=== PATIENT | female | born 1990 | race Caucasian/White ===

== ENCOUNTER 2017-01-01 02:35 | Emergency (ER) | payer OTHER ==
[2017-01-01 02:51] VITALS: BP 132/80; PULSE 90; TEMP 98.4; BMI 30.4
--- NOTE | 2017-01-01 03:27 | PDOC ---
History of Present Illness - General History Source: Patient Exam Limitations: No Limitations - History of Present Illness Initial Comments: 01/01/17 04:35 The patient is a 26 year old female, , with a significant past medical history of ovarian cysts, and pulmonary valve stenosis, presenting to the Emergency Department with abdominal pain. She reports that she was woken up from sleep about one hour ago with sharp, lower abdominal pain. She describes the pain as exacerbated with movement, or when standing. She reports that she is unsure of when her last bowel movement was. She admits that she feels that she needs to pass gas, but that it is painful. She reports that she has a history of ovarian cysts, and has a copper IUD. The patient denies nausea, vomiting, and diarrhea. Patient denies dysuria, hematuria, and urinary frequency. Patient denies fever, chills, and cough. Patient denies vaginal discharge, or vaginal bleeding. Past Medical Hx: asthma <Zaida Capellan - Last Filed: 01/01/17 06:53> <Lelia Blanc - Last Filed: 01/01/17 06:58> - General Chief Complaint: Pain, Acute Stated Complaint: ABDOMINAL PAIN RIGHT SIDE Time Seen by Provider: 01/01/17 03:03 Past History <Zaida Capellan - Last Filed: 01/01/17 06:53> - Past Medical History Anemia: No Asthma: Yes Cancer: No Cardiac Disorders: Yes (pulmonary stenosis) CVA: No COPD: No CHF: No Dementia: No Diabetes: No GI Disorders: No Disorders: Yes (HAD PAINFUL KIDNEY INFECTION SEVERAL YRS AGO) HTN: No Hypercholesterolemia: No Liver Disease: No Suicide Attempt (Hx): No Seizures: No Thyroid Disease: No - Reproductive History (#): 3 Para: 2 - Psycho/Social/Smoking Cessation Hx Anxiety: No Suicidal Ideation: No Smoking Status: No Smoking History: Never smoked Number of Cigarettes Smoked Daily: 0 Hx Alcohol Use: No Drug/Substance Use Hx: No Substance Use Type: None Hx Substance Use Treatment: No <Lelia Blanc - Last Filed: 01/01/17 06:58> - Past Medical History Allergies/Adverse Reactions: Allergies Allergy/AdvReac Type Severity Reaction Status Date / Time meperidine HCl [From Demerol] Allergy Intermediate Hives Verified 01/01/17 02:49 Home Medications: Ambulatory Orders Albuterol Sulfate Inhaler - [Ventolin HFA Inhaler -] 1 - 2 inh PO QID PRN Nitrofurantoin Macrocrystal [Nitrofurantoin] 100 mg PO BID #14 capsule 01/01/17 Review of Systems - Review of Systems Able to Perform ROS?: Yes Comments:: 01/01/17 04:35 GENERAL/CONSTITUTIONAL: No fever or chills. No weakness. HEAD, EYES, EARS, NOSE AND THROAT: No change in vision. No ear pain or discharge. No sore throat. CARDIOVASCULAR: No chest pain or shortness of breath. RESPIRATORY: No cough, wheezing, or hemoptysis. GASTROINTESTINAL: + RLQ pain. No nausea, vomiting, diarrhea or constipation. GENITOURINARY: No dysuria, frequency, or change in urination. MUSCULOSKELETAL: No joint or muscle swelling or pain. No neck or back pain. SKIN: No rash NEUROLOGIC: No headache, vertigo, loss of consciousness, or change in strength/ sensation. ENDOCRINE: No increased thirst. No abnormal weight change. HEMATOLOGIC/LYMPHATIC: No anemia, easy bleeding, or history of blood clots. ALLERGIC/IMMUNOLOGIC: No hives or skin allergy. <Zaida Capellan - Last Filed: 01/01/17 06:53> *Physical Exam - Vital Signs Last Vital Signs Temp Pulse Resp BP Pulse Ox 98.4 F 90 20 132/80 99 01/01/17 02:49 01/01/17 02:49 01/01/17 02:49 01/01/17 02:49 01/01/17 02:49 - Physical Exam Comments: 01/01/17 04:36 GENERAL: Awake, alert, and fully oriented, in no acute distress HEAD: No signs of trauma EYES: PERRLA, EOMI, sclera anicteric, conjunctiva clear ENT: Auricles normal inspection, hearing grossly normal, nares patent, oropharynx clear without exudates. Moist mucosa NECK: Normal ROM, supple, no lymphadenopathy, JVD, or masses LUNGS: Breath sounds equal, clear to auscultation bilaterally. No wheezes, and no crackles HEART: Regular rate and rhythm, normal S1 and S2, no murmurs, rubs or gallops ABDOMEN: Diffusely tender, extremely gassy bowel sounds. Soft. No guarding, no rebound. No masses EXTREMITIES: Normal range of motion, no edema. No clubbing or cyanosis. No cords, erythema, or tenderness NEUROLOGICAL: Cranial nerves II through XII grossly intact. Normal speech, normal gait SKIN: Warm, Dry, normal turgor, no rashes or lesions noted. <Zaida Capellan - Last Filed: 01/01/17 06:53> - Vital Signs Last Vital Signs Temp Pulse Resp BP Pulse Ox 98.4 F 90 20 132/80 99 01/01/17 02:49 01/01/17 02:49 01/01/17 02:49 01/01/17 02:49 01/01/17 02:49 <Lelia Blanc - Last Filed: 01/01/17 06:58> ED Treatment Course - LABORATORY CBC & Chemistry Diagram: 01/01/17 03:15 - ADDITIONAL ORDERS Additional order review: Laboratory Results 01/01/17 01/01/17 04:12 03:15 Urine Color Straw Urine Appearance Clear Urine pH 6.0 Ur Specific [place] 1.010 Urine Protein Negative Urine Glucose (UA) Negative Urine Ketones Negative Urine Blood 1+ H Urine Nitrite Negative Urine Bilirubin Negative Urine Urobilinogen Negative Ur Leukocyte Esterase 1+ H Urine RBC 1 Urine WBC 11 Ur Epithelial Cells Rare Urine Bacteria Few Urine Mucus Rare Urine HCG, Qual Negative 01/01/17 03:15 RBC 4.53 MCV 87.6 MCHC 32.4 RDW 13.2 MPV 8.4 Neutrophils % 48.7 D Lymphocytes % 42.1 H D Monocytes % 7.4 Eosinophils % 1.3 D Basophils % 0.5 - RADIOLOGY Radiology Studies Ordered: 01/01/17 06:[address] As reviewed by Dr. Manish Wilkins IMPRESSION: Normal appendix. No adnexal masses. Punctate right renal stone. No definite acute pathology. - Medications Given in the ED: ED Medications Discontinued Medications Generic Name Dose Route Start Last Admin Trade Name Freq PRN Reason Stop Dose Admin Lactulose 20 gm 01/01/17 03:50 01/01/17 04:10 Cephulac (Oral Use) PO 01/01/17 03:51 20 gm ONCE ONE Administration <Zaida Capellan - Last Filed: 01/01/17 06:53> - LABORATORY CBC & Chemistry Diagram: 01/01/17 03:15 <Lelia Blanc - Last Filed: 01/01/17 06:58> Medical Decision Making - Medical Decision Making 01/01/17 06:49 Patient Name: Marybel South THIS IS A PRELIMINARYREPORT FROM [employer] EXAM: CT abdomen and pelvis without contrast IMAGES: [id number] INDICATION: Rule out appendicitis DATE OF SERVICE: 2017-01-01 04:18:52.0 COMPARISON: none FINDINGS : Lung bases are clear. The visualized cardiac chambers are normal size and configuration. There may be a punctate right renal stone. Normal unenhanced liver, gallbladder, pancreas, spleen, adrenal glands and left kidney. The stomach and abdominal small and large bowel are normal. There is no aortic aneurysm. There is no significant retroperitoneal lymphadenopathy. The pelvic small and large bowel are normal. T the appendix is normal. The uterus and adnexal structures are notable for an IUD. Urinary bladder is unremarkable. There is no pelvic free fluid. No discrete pelvic lymphadenopathy is identified. IMPRESSION: Normal appendix. No adnexal masses. <Lelia Blanc - Last Filed: 01/01/17 06:58> *DC/Admit/Observation/Transfer - Attestations Scribe Attestion: 01/01/17 04:36 Documentation prepared by Zaida Capellan, acting as district medical examiner for Lelia Blanc MD. <Zaida Capellan - Last Filed: 01/01/17 06:53> - Discharge Dispostion Admit: No <Lelia Blanc - Last Filed: 01/01/17 06:58> Diagnosis at time of Disposition: Urinary tract infection, Constipation due to pain medication - Discharge Dispostion Disposition: HOME Condition at time of disposition: Improved - Prescriptions Prescriptions: Nitrofurantoin Macrocrystal [Nitrofurantoin] 100 mg PO BID #14 capsule - Patient Instructions Printed Discharge Instructions: DI for Constipation, DI for Dyspepsia, DI for Urinary Tract Infection (UTI)
[2017-01-01] MEDS ORDERED: LACTULOSE 20 GM/30 ML UDC (FOR ORAL USE ONLY) PO ONE (03:50)
[2017-01-01] MEDS ORDERED: LACTULOSE 20 GM/30 ML UDC (FOR ORAL USE ONLY) ONE (04:08)
[2017-01-01 04:09] LABS: URINE APPEARANCE CLEAR; URINE BILIRUBIN NEGATIVE (NEGATIVE); URINE COLOR STRAW; URINE GLUCOSE (UA) NEGATIVE (NEGATIVE); URINE KETONE NEGATIVE (NEGATIVE); URINE NITRITE NEGATIVE (NEGATIVE); URINE PROTEIN NEGATIVE (NEGATIVE); URINE UROBILINOGEN NEGATIVE E.U./dl (0.2-1.0)
[2017-01-01 04:10] LABS: URINE BLOOD 1+ (NEGATIVE); URINE LEUK ESTERASE 1+ (NEGATIVE)
[2017-01-01 04:11] LABS: BASOPHIL 0.5 % (0-2.0); EOSINOPHIL 1.3 % (0-4.5); MCH 28.4 pg (25.7-33.7); MCHC 32.4 g/dl (32.0-36.0); MEAN CELL VOLUME 87.6 fl (80-96); MEAN PLT VOLUME 8.4 fl (7.5-11.1); NEUTROPHILS 48.7 % (42.8-82.8); PLATELET COUNT 252 K/MM3 (134-434); RDW 13.2 % (11.6-15.6); WHITE BLOOD COUNT 9.8 K/mm3 (4.0-10.0)
[2017-01-01 04:14] LABS: URINE BACTERIA FEW /hpf (NONE SEEN); URINE MUCUS RARE; URINE RBC 1 /hpf (0-3); URINE WBC 11 /hpf (3-5)
[2017-01-01 04:36] LABS: INR 0.95 (0.82-1.09); PROTHROMBIN TIME (PATIENT) 10.4 SEC (9.98-11.88)
[2017-01-01 04:49] LABS: TROPONIN I < 0.02 ng/ml (0.00-0.05)
[2017-01-01] MEDS ORDERED: NITROFURANTOIN MACROCRYSTAL 50 MG CAPSULE (FP) PO SCH (07:00)
[2017-01-01] MEDS ORDERED: NITROFURANTOIN MACROCRYSTAL 50 MG CAPSULE (FP) ONE (07:06)
== END 2017-01-01 07:17 | disposition home or self-care (01) ==
LOC: JER 02:35
DX: N39.0 Urinary tract infection, site not specified (principal); K59.03 Drug induced constipation; T50.995A Adverse effect of other drugs, medicaments and biological substances, initial encounter; Y92.038 Other place in apartment as the place of occurrence of the external cause
CPT/HCPCS: 36415; 74176-TC; 81003; 81015; 82150; 82550; 83690; 84484; 84703; 85025; 85610; 99282-25

== ENCOUNTER 2017-08-30 19:03 | Emergency (ER) | payer OTHER ==
--- NOTE | 2017-08-30 19:43 | PDOC ---
History of Present Illness - General History Source: Patient Exam Limitations: No Limitations - History of Present Illness Initial Comments: 08/30/17 20:33 The patient is a 27 year old female with past medical history of asthma, heart murmur, and mild pulmonary stenosis who presents to the ED with complaints of prolonged menstrual period as well as cold symptoms. The patient states that she has had her period for a month, as it began on July 31. Since then she has been experiencing heavy blood clots and cramping, sometimes even causing her to double over in pain. She explains that this is very atypical for her menstrual period, as they usually last only 5 days. The patient states she has had an IUD in place for 3 years and denies having any problems with it before. 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 Additionally, the patient has also been experiencing a productive cough for the past month, stating shes producing bright green mucus with accompanied mild shortness of breath. She denies any wheezing. The patient states she had strep throat in July as well. She denies any chest pain, fevers, chills, nausea, vomiting, diarrhea, or urinary symptoms. <Morena Limon - Last Filed: 08/30/17 21:06> <Jenifer Regalado - Last Filed: 08/31/17 02:00> - General Chief Complaint: Vaginal Bleeding Stated Complaint: vaginal bleeding,cough Time Seen by Provider: 08/30/17 19:40 Past History <Morena Limon - Last Filed: 08/30/17 21:06> - Past Medical History Anemia: No Asthma: Yes Cancer: No Cardiac Disorders: Yes (pulmonary stenosis) CVA: No COPD: No CHF: No Dementia: No Diabetes: No GI Disorders: No Disorders: Yes (HAD PAINFUL KIDNEY INFECTION SEVERAL YRS AGO) HTN: No Hypercholesterolemia: No Liver Disease: No Seizures: No Thyroid Disease: No - Reproductive History Is Patient Now?: (denies) (#): 3 Para: 2 - Suicide/Smoking/Psychosocial Hx Smoking Status: No Smoking History: Never smoked Have you smoked in the past 12 months: No Number of Cigarettes Smoked Daily: 0 Information on smoking cessation initiated: No Hx Alcohol Use: No Drug/Substance Use Hx: No Substance Use Type: None Hx Substance Use Treatment: No <Jenifer Regalado - Last Filed: 08/31/17 02:00> - Past Medical History Allergies/Adverse Reactions: Allergies Allergy/AdvReac Type Severity Reaction Status Date / Time meperidine HCl [From Demerol] Allergy Intermediate Hives Verified 08/30/17 19:04 Home Medications: Ambulatory Orders Albuterol Sulfate [Proventil HFA Inhaler -] 1 - 2 inh PO PRN PRN 08/30/17 Review of Systems - Review of Systems Able to Perform ROS?: Yes Comments:: 08/30/17 20:33 CONSTITUTIONAL: Absent: fever, chills, diaphoresis, generalized weakness, malaise, loss of appetite HEENT: Absent: rhinorrhea, nasal congestion, throat pain, throat swelling, difficulty swallowing, mouth swelling, ear pain, eye pain, visual Changes CARDIOVASCULAR: Absent: chest pain, syncope, palpitations, irregular heart rate, lightheadedness , peripheral edema RESPIRATORY: Present: productive cough, shortness of breath Absent: dyspnea with exertion, orthopnea, wheezing, stridor, hemoptysis GASTROINTESTINAL: Present: suprapubic pain Absent: abdominal distension, nausea, vomiting, diarrhea, constipation, melena, hematochezia GENITOURINARY: Present: vaginal bleeding Absent: dysuria, frequency, urgency, hesitancy, hematuria, flank pain MUSCULOSKELETAL: Absent: myalgia, arthralgia, joint swelling SKIN: Absent: rash, itching, pallor HEMATOLOGIC/IMMUNOLOGIC: Absent: easy bleeding, easy bruising, lymphadenopathy, frequent infections ENDOCRINE: Absent: unexplained weight gain, unexplained weight loss, heat intolerance, cold intolerance NEUROLOGIC: Absent: headache, focal weakness or paresthesias, dizziness, unsteady gait, seizure, mental status changes, bladder or bowel incontinence PSYCHIATRIC: Absent: anxiety, depression, suicidal or homicidal ideation, hallucinations. All Other Systems: Reviewed and Negative <Morena Limon - Last Filed: 08/30/17 21:06> *Physical Exam - Vital Signs Last Vital Signs Temp Pulse Resp BP Pulse Ox 98.5 F 88 20 130/87 99 08/30/17 19:04 08/30/17 19:04 08/30/17 19:04 08/30/17 19:04 08/30/17 19:04 - Physical Exam Comments: 08/30/17 21:01 CONSTITUTIONAL: Absent: fever, chills, diaphoresis, generalized weakness, malaise, loss of appetite HEENT: Absent: rhinorrhea, nasal congestion, throat pain, throat swelling, difficulty swallowing, mouth swelling, ear pain, eye pain, visual Changes CARDIOVASCULAR: Absent: chest pain, syncope, palpitations, irregular heart rate, lightheadedness , peripheral edema RESPIRATORY: Absent: cough, shortness of breath, dyspnea with exertion, orthopnea, wheezing, stridor, hemoptysis GASTROINTESTINAL: Absent: abdominal pain, abdominal distension, nausea, vomiting, diarrhea, constipation, melena, hematochezia PELVIC EXAM:Normal external female genitalia, moderate amount of blood in vaginal vault, normal cervix with IUD string visualized, nontender adnexa, no masses GENITOURINARY: Absent: dysuria, frequency, urgency, hesitancy, hematuria, flank pain, genital pain MUSCULOSKELETAL: Absent: myalgia, arthralgia, joint swelling SKIN: Absent: rash, itching, pallor HEMATOLOGIC/IMMUNOLOGIC: Absent: easy bleeding, easy bruising, lymphadenopathy, frequent infections ENDOCRINE: Absent: unexplained weight gain, unexplained weight loss, heat intolerance, cold intolerance NEUROLOGIC: Absent: headache, focal weakness or paresthesias, dizziness, unsteady gait, seizure, mental status changes, bladder or bowel incontinence PSYCHIATRIC: Absent: anxiety, depression, suicidal or homicidal ideation, hallucinations. <Morena Limon - Last Filed: 08/30/17 21:06> - Vital Signs Last Vital Signs Temp Pulse Resp BP Pulse Ox 98.5 F 88 20 130/87 99 08/30/17 19:04 08/30/17 19:04 08/30/17 19:04 08/30/17 19:04 08/30/17 19:04 <Jenifer Regalado - Last Filed: 08/31/17 02:00> ED Treatment Course - ADDITIONAL ORDERS Additional order review: Laboratory Results 08/30/17 20:14 Urine Color Yellow Urine Appearance Slightly Urine pH 6.5 Ur Specific [place] 1.025 Urine Protein Trace Urine Glucose (UA) Negative Urine Ketones Trace Urine Blood 3+ H Urine Nitrite Negative Urine Bilirubin Negative Urine Urobilinogen 0.2 Ur Leukocyte Esterase 1+ H Urine HCG, Qual Negative <Morena Limon - Last Filed: 08/30/17 21:06> Progress Note - Progress Note Progress Note: Documentation has been prepared under my direction and personally reviewed by me in its entirety. I attest that this documented accurately reflects all work, treatment, procedures and medical decision making performed by me. <Jenifer Regalado - Last Filed: 08/31/17 02:00> Medical Decision Making - Medical Decision Making As noted above, this 27-year-old woman presents with one-month history of vaginal bleeding and few week history of cough, productive of greenish sputum over the last 2 days. Patient has a history of asthma but no history of bronchitis/pneumonia. She has not had any wheezing or shortness of breath during the current respiratory episode. Exam notable for clear lung sounds. Patient states that she had one previous history of requiring prednisone for asthma exacerbation but cannot remember the last time she needed antibiotics for bronchitis. Patient has, as noted above, an IUD in place for 3 years. No previous history of abnormal vaginal bleeding. Although she has had daily bleeding for several weeks, she has had no shortness of breath/weakness/fatigue. She has no previous history of anemia. The patient was scheduled to see her crossing flagman today but office canceled the appointment. 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 Patient describes small pieces of "solid material" being passed with vaginal blood. Pelvic exam was performed and results as noted above: Moderate amount of blood in vaginal vault but no clots or tissue observed. No adnexal masses or tenderness found. IUD string seen in cervix. Patient has been advised to follow-up with her crossing flagman within 1-2 days for ultrasound evaluation of the location of the IUD. Since exam did not suggest that there was migration of the IUD, no further evaluation will be done emergently. Since there is only been a few day history of purulent sputum and no fever/ shortness of breath/wheezing, likely that bronchitis is viral. She should, however follow-up with her general doctor within the next few days <Jenifer Regalado - Last Filed: 08/31/17 02:00> *DC/Admit/Observation/Transfer - Attestations Scribe Attestion: 08/30/17 20:34 Documentation prepared by Morena Limon, acting as medical researcher for Jenifer Regalado MD. <Morena Limon - Last Filed: 08/30/17 21:06> <Jenifer Regalado - Last Filed: 08/31/17 02:00> Diagnosis at time of Disposition: Bronchitis, Abnormal vaginal bleeding - Discharge Dispostion Disposition: HOME Condition at time of disposition: Stable - Patient Instructions Printed Discharge Instructions: DI for Acute Bronchitis, DI for Abnormal Uterine Bleeding Additional Instructions: return to ER if cough worsens or you develop fever/shortness of breath see your crossing flagman within 1 week return to ER if you have weakness/lightheadedness
[2017-08-30 19:47] VITALS: BP 130/87; PULSE 88; TEMP 98.5; BMI 31.9
[2017-08-30 20:26] LABS: PH,URINE 6.5 (4.5-8); URINE APPEARANCE Slightly; URINE BILIRUBIN Negative (NEGATIVE); URINE GLUCOSE (UA) Negative (NEGATIVE); URINE KETONE Trace (NEGATIVE); URINE NITRITE Negative (NEGATIVE); URINE PROTEIN Trace (NEGATIVE); URINE UROBILINOGEN 0.2 (0.2-1.0)
[2017-08-30 20:27] LABS: URINE BLOOD 3+ (NEGATIVE); URINE COLOR YELLOW; URINE LEUK ESTERASE 1+ (NEGATIVE)
[2017-08-30 20:47] LABS: URINE BACTERIA MODERATE /hpf (NEGATIVE); URINE RBC 40-60 /hpf (0-3)
== END 2017-08-30 21:00 | disposition home or self-care (01) ==
LOC: FER 19:03
DX: J40 Bronchitis, not specified as acute or chronic (principal); N92.6 Irregular menstruation, unspecified
CPT/HCPCS: 81003; 81015; 84703; 99284-25

== ENCOUNTER 2018-09-15 18:04 | Inpatient (IN) | payer OTHER ==
[2018-09-15 18:18] VITALS: BMI 33.5
--- NOTE | 2018-09-15 18:32 | PDOC ---
History of Present Illness - General Chief Complaint: Pain Stated Complaint: PCP SENT/ASTHMA/FLANK PAIN Time Seen by Provider: 09/15/18 18:31 - History of Present Illness Initial Comments: 09/15/18 19:13 The patient is a 28 year old female with a history of asthma, pulmonary stenosis , and pyelonephritis who presents for evaluation of flank pain. The patient reports a several week history of bilateral poorly described flank pain with associated urinary pressure when urinating. She states that she initially presented to an urgent care which placed her on Macrobid for 10 days. She continued to experience symptoms and presented to her primary care provider who placed her on cipro which she completed the course of but noted continued symptoms prompting her presentation to the ED for further evaluation. She notes that she has required admission for iv antibiotics in the past due to pyelonephritis. She states that her symptoms feel similar to her prior episodes of pyelonephritis. She reports subjective fevers as well but otherwise denies chills, SOB, chest pain, nausea, vomiting, abdominal pain, or changes with bowel movements. She notes that she is menstruating. Past History - Past Medical History Allergies/Adverse Reactions: Allergies Allergy/AdvReac Type Severity Reaction Status Date / Time meperidine HCl [From Demerol] Allergy Intermediate Hives Verified 09/15/18 18:15 Home Medications: Ambulatory Orders Albuterol Sulfate [Proventil HFA Inhaler -] 1 - 2 inh PO PRN PRN 08/30/17 Anemia: No Asthma: Yes Cancer: No Cardiac Disorders: Yes (pulmonary stenosis) CVA: No COPD: No CHF: No Dementia: No Diabetes: No GI Disorders: No Disorders: Yes (pyelonephritis) HTN: No Hypercholesterolemia: No Liver Disease: No Seizures: No Thyroid Disease: No - Reproductive History (#): 3 Para: 2 - Suicide/Smoking/Psychosocial Hx Smoking Status: No Smoking History: Never smoked Have you smoked in the past 12 months: No Number of Cigarettes Smoked Daily: 0 Hx Alcohol Use: No Drug/Substance Use Hx: No Substance Use Type: None Hx Substance Use Treatment: No Review of Systems - Review of Systems Comments:: 09/15/18 19:26 Constitutional: Fevers. No chills, fatigue, malaise HEENT: No Rhinorrhea, nasal congestion, visual changes Cardiovascular: No chest pain, syncope, palpitations, lightheadedness Respiratory: Cough. No SOB, Hemoptysis, Gastrointestinal: No Abdominal pain, Nausea, Vomiting, Constipation, Diarrhea, Melena Genitourinary: Bilateral Flank Pain. No Dysuria, Frequency, Urgency, Hesitancy , Hematuria, Musculoskeletal: No Myalgia, arthralgia Skin: No rashes, itching, bruising, pallor Neurologic: No Headache, Dizziness, Numbness, Weakness, or Tingling Psychiatric: No Hallucinations. No SI or HI *Physical Exam - Vital Signs Last Vital Signs Temp Pulse Resp BP Pulse Ox 98.9 F 109 H 22 H 134/84 97 09/15/18 18:15 09/15/18 18:15 09/15/18 18:15 09/15/18 18:15 09/15/18 18:15 - Physical Exam Comments: 09/15/18 19:28 General Appearance: Nourished. No Apparent Distress HEENT: No Pharyngeal Erythema, Tonsillar Exudate, Tonsillar Erythema Neck: No Cervical Lymphadenopathy Respiratory/Chest: Lungs Clear, Normal Breath Sounds. No Crackles, Rales, Rhonchi, Wheezing Cardiovascular: Regular Rhythm, Regular Rate. No Murmur, Gallops, Rubs Gastrointestinal/Abdominal: Normal Bowel Sounds, Soft. No Guarding, Rebound, Tenderness Musculoskeletal: Mild Bilateral CVA Tenderness Extremity: Normal Capillary Refill Integumentary: Normal Color, Dry, Warm Neurologic: Fully Oriented, Alert, Normal Mood/Affect, Normal Response, ED Treatment Course - LABORATORY CBC & Chemistry Diagram: 09/16/18 08:05 09/16/18 08:05 Medical Decision Making - Medical Decision Making 09/15/18 19:30 The patient is a 28 year old female with a history of asthma, pulmonary stenosis , and pyelonephritis who presents for evaluation of flank pain. Differential includes but is not limited to: Pyelonephritis, UTI, Infectious, Metabolic Derangement. Given the patient's history and physical exam, it is likely the patient's symptoms are due to a pyelonephritis unresponsive to outpatient management. We will obtain a cbc, cmp, lactate, blood cultures, ua, urine preg , urine culture to evaluate further. Bedside US performed by me and Dr. Hill did not demonstrate any hydronephrosis and was otherwise unremarkable. We will treat the patient with iv fluids, and ceftriaxone. The patient will likely require admission for further management. 09/15/18 20:17 CBC, cmp, ua are unremarkable. We discussed the case with Dr. Staley with the admitting team who accepted the patient for admission. *DC/Admit/Observation/Transfer Diagnosis at time of Disposition: Pyelonephritis - Discharge Dispostion Disposition: HOME Condition at time of disposition: Good Decision to Admit order: Yes - Referrals - Patient Instructions - Post Discharge Activity
[2018-09-15 18:33] LABS: HCG,QUALITATIVE URINE Negative
[2018-09-15] MEDS ORDERED: SODIUM CHLORIDE 1,000 ML IV STA (18:42)
[2018-09-15 18:43] LABS: URINE APPEARANCE CLEAR; URINE BILIRUBIN NEGATIVE (<2.0 mg/dL); URINE COLOR YELLOW; URINE GLUCOSE (UA) NEGATIVE (NEGATIVE); URINE KETONE NEGATIVE (NEGATIVE); URINE LEUK ESTERASE NEGATIVE (NEGATIVE); URINE NITRITE NEGATIVE (NEGATIVE); URINE PROTEIN NEGATIVE (NEGATIVE); URINE UROBILINOGEN NEGATIVE mg/dL (0.2-1.0)
[2018-09-15 18:48] LABS: EPI CELLS RARE /HPF (FEW); URINE HYALINE CAST 3 /lpf; URINE MUCUS RARE
[2018-09-15] MEDS ORDERED: ALBUTEROL SO4 2.5/IPRATROPIUM 0.5 INH SOL 3 ML VIAL.NEB. NEB ONE ×2 (19:05→20:04)
[2018-09-15 19:26] LABS: BASO % 0.3 % (0-2.0); HEMOGLOBIN 14.2 GM/dL (10.7-15.3); LYMPH % 22.8 % (8-40); MCH 29.7 pg (25.7-33.7); MCHC 33.8 g/dl (32.0-36.0); MEAN PLT VOLUME 8.7 fl (7.5-11.1); NEUT % 67.9 % (42.8-82.8); PLATELET COUNT 265 K/MM3 (134-434); RBC 4.78 M/mm3 (3.60-5.2); RDW 13.7 % (11.6-15.6); WHITE BLOOD COUNT 8.6 K/mm3 (4.0-10.0)
--- NOTE | 2018-09-15 19:30 | PDOC ---
Attending Attestation - Resident Resident Name: Saroj Mukherjee - ED Attending Attestation I have performed the following: I have examined & evaluated the patient, The case was reviewed & discussed with the resident, I agree w/resident's findings & plan, Exceptions are as noted - Physicial Exam PE: 09/15/18 19:27 awake alert lungs clear bilaterally heart rrr lno mrg abd soft mild suprapubic ttp, left cva ttp. no rebound no guarding. ext wwp. no edema. no calf tenderness. - Medical Decision Making 09/15/18 19:28 28 yo F w h/o frequent uti, asthma, here with failed outpt treatement for uti. ( treated with macrobid, and cipro) still having flank pain. pt is menstruating also, plan admit for ceftriaxone, focused ED renal ultrasound r/o hydro. focused ED ultrasound, renal indication flank pain bilateral kidneys scanned in two planes. right kidney 9.26 x 6.9 no hydronephrosis left kidney 10.2 x 6.4 no hydronephrosis bladder collapsed. impression: normal renal ultrasound. pt menstruating to explain blood in urine. no hydro on us. will admit for iv abx. <Kira Hill - Last Filed: 09/15/18 19:27> - HPI HPI: 09/15/18 19:34 The patient is a 28-year-old male with past medical history significant for pulmonary valve stenosis, asthma and pyelonephritis presents to the emergency department with flank pain and urinary pressure. The patient presents with several weeks of bilateral flank pain thats accompanied with urinary pressure. The patient reports she was diagnosed with UTI at an Urgent Care and was started on 10 days of Macrobid antibiotic. The patient states following up at with PCP, who started her on Cipro. The patient reports finishing the Cipro course, and even after the course, she was still endorsing a fever. The patient reports following up at an Urgent Care, where she was informed she still has the UTI and was referred to the ER. The patient reports the symptoms to feel similar to prior Pyelonephritis, that required admission for IV antibiotics. Denies nausea, vomiting, abdominal pain, chest pain, shortness of breath. LMP: currently Allergies: meperidine HCl Social history: No past or present use of tobacco, alcohol or recreational drug use. PCP: Boby Irizarry MD 09/15/18 19:35 - Medical Decision Making 09/15/18 19:34 Documentation prepared by Marybeth Walker, acting as medical claims specialist for Kira Hill MD. <Marybeth Walker - Last Filed: 09/15/18 19:35>
[2018-09-15] MEDS ORDERED: CEFTRIAXONE 1 GM in DEXTROSE 5%-WATER - 100 ML IVPB ONE (19:36)
[2018-09-15 20:02] LABS: ALBUMIN 3.7 g/dl (3.4-5.0); ALK PHOS 72 U/L (45-117); ANION GAP 7 MMOL/L (8-16); BILIRUBIN,TOTAL 0.2 mg/dL (0.2-1); BLOOD UREA NITROGEN 10 mg/dL (7-18); CHLORIDE 108 mmol/L (98-107); CO2 26 mmol/L (21-32); CREATININE 0.5 mg/dL (0.55-1.3); GLUCOSE,RANDOM 95 mg/dL (74-106); POTASSIUM 4.1 mmol/L (3.5-5.1); SGOT/AST 12 U/L (15-37); SGPT/ALT 19 U/L (13-61); SODIUM 141 mmol/L (136-145); TOT PROT 7.6 g/dl (6.4-8.2)
[2018-09-15] MEDS ORDERED: CEFTRIAXONE 1 GM/50 ML BAG ONE (20:05)
[2018-09-16] MEDS: DEXTROSE 5%-0.45% SALINE 1,000 ML IV SCH (06:39)
[2018-09-16 08:49] LABS: BASO % 0.3 % (0-2.0); EOS % 2.7 % (0-4.5); HEMOGLOBIN 12.7 GM/dL (10.7-15.3); LYMPH % 49.6 % (8-40); MCH 30.3 pg (25.7-33.7); MCHC 34.3 g/dl (32.0-36.0); MEAN CELL VOLUME 88.2 fl (80-96); MEAN PLT VOLUME 8.8 fl (7.5-11.1); MONO % 8.1 % (3.8-10.2); NEUT % 39.3 % (42.8-82.8); PLATELET COUNT 236 K/MM3 (134-434); RDW 13.4 % (11.6-15.6); WHITE BLOOD COUNT 6.4 K/mm3 (4.0-10.0)
[2018-09-16 09:07] LABS: ALK PHOS 59 U/L (45-117); ANION GAP 6 MMOL/L (8-16); BILIRUBIN,TOTAL 0.2 mg/dL (0.2-1); BLOOD UREA NITROGEN 12 mg/dL (7-18); CALCIUM 8.3 mg/dL (8.5-10.1); CHLORIDE 109 mmol/L (98-107); CO2 25 mmol/L (21-32); CREATININE 0.5 mg/dL (0.55-1.3); GLUCOSE,RANDOM 99 mg/dL (74-106); POTASSIUM 3.9 mmol/L (3.5-5.1); SGOT/AST 9 U/L (15-37); SGPT/ALT 15 U/L (13-61); SODIUM 140 mmol/L (136-145); TOT PROT 6.4 g/dl (6.4-8.2)
[2018-09-16] MEDS: CEFTRIAXONE 1 GM in DEXTROSE 5%-WATER - 50 ML IVPB SCH (10:19)
[2018-09-16] MEDS: HEPARIN NA (PORCINE) 5,000 UNITS/ML 1ML VIAL SQ SCH ×2 (10:19→22:03)
[2018-09-16] MEDS ORDERED: ALBUTEROL SO4 2.5/IPRATROPIUM 0.5 INH SOL 3 ML VIAL.NEB. NEB PRN (11:00)
--- NOTE | 2018-09-16 11:38 | EKG ---
Test Reason : Blood Pressure : / mmHG Vent. Rate : 080 BPM Atrial Rate : 080 BPM P-R Int : 132 ms QRS Dur : 094 ms QT Int : 376 ms P-R-T Axes : 034 037 035 degrees QTc Int : 433 ms NORMAL SINUS RHYTHM NORMAL ECG WHEN COMPARED WITH ECG OF 21-FEB-2011 21:28, NO SIGNIFICANT CHANGE WAS FOUND Confirmed by SAUNDRA PACKER MD ([id number]) on 09/16/2018 11:38:34 AM Referred By: Confirmed By:SAUNDRA PACKER MD
[2018-09-16] MEDS: PANTOPRAZOLE 40 MG TABLET (FP) PO SCH (11:57)
--- NOTE | 2018-09-16 12:16 | CON.ID ---
Consult Consult Specialty:: infectious diseases - Past Medical History ...LMP: 09/12/18 ...: No - Alcohol/Substance Use Hx Alcohol Use: No - Smoking History Smoking history: Never smoked Have you smoked in the past 12 months: No Aproximately how many cigarettes per day: 0 Home Medications - Allergies Allergies/Adverse Reactions: Allergies Allergy/AdvReac Type Severity Reaction Status Date / Time meperidine HCl [From Demerol] Allergy Intermediate Hives Verified 09/15/18 18:15 - Home Medications Home Medications: Ambulatory Orders Albuterol Sulfate [Proventil HFA Inhaler -] 1 - 2 inh PO PRN PRN 08/30/17 Physical Exam Vital Signs: Vital Signs Temperature 97.5 F L 09/16/18 10:00 Pulse Rate 88 09/16/18 10:00 Respiratory Rate 18 09/16/18 10:00 Blood Pressure 131/77 09/16/18 10:00 O2 Sat by Pulse Oximetry (%) 98 09/16/18 01:07 EST Labs: CBC, BMP 09/16/18 08:05 09/16/18 08:05
[2018-09-16] MEDS: ACETAMINOPHEN 325 MG TABLET (FP) PO PRN (16:26)
--- NOTE | 2018-09-16 19:53 | HP ---
Admitting History and Physical - Admission History of Present Illness: Pt is a 28 y/o female with PMH significant for asthma, pulmonary stenosis, and pyelonephritis. Pt presented to the ER bc of B/L flank pain although the flank pain was more prominent on the Lt. The patient reports a several week history of bilateral poorly described flank pain with associated urinary pressure when urinating. She states that she initially presented to an urgent care which placed her on Macrobid for 10 days. She continued to experience symptoms and presented to her primary care provider who placed her on cipro which she completed the course of but noted continued symptoms prompting her presentation to the ED for further evaluation. Pt denies any fever/chills/night sweats/ vomiting/nausea/diarrhea/constipation. - Past Medical History ...LMP: 09/12/18 ...: No Infectious Disease: Yes: Other (Pyelonephritis) - Smoking History Smoking history: Never smoked Have you smoked in the past 12 months: No Aproximately how many cigarettes per day: 0 - Alcohol/Substance Use Hx Alcohol Use: No Home Medications - Allergies Allergies/Adverse Reactions: Allergies Allergy/AdvReac Type Severity Reaction Status Date / Time meperidine HCl [From Demerol] Allergy Intermediate Hives Verified 09/15/18 18:15 - Home Medications Home Medications: Ambulatory Orders Albuterol Sulfate [Proventil HFA Inhaler -] 1 - 2 inh PO PRN PRN 08/30/17 Family Disease History - Family Disease History Family History: Unremarkable Review of Systems - Review of Systems Constitutional: reports: Loss of Appetite, Malaise, Weakness Neck: reports: No Symptoms Cardiovascular: reports: No Symptoms Respiratory: reports: No Symptoms Gastrointestinal: reports: Abdominal Pain Genitourinary: reports: Dysuria Physical Examination Vital Signs: Vital Signs Temperature 98.6 F 09/16/18 18:00 Pulse Rate 104 H 09/16/18 18:00 Respiratory Rate 18 09/16/18 18:00 Blood Pressure 131/74 09/16/18 18:00 O2 Sat by Pulse Oximetry (%) 99 09/16/18 10:00 Constitutional: Yes: Well Nourished HENT: Yes: WNL Neck: Yes: WNL, Supple Cardiovascular: Yes: WNL, Regular Rate and Rhythm Respiratory: Yes: WNL, Regular, CTA Bilaterally Gastrointestinal: Yes: WNL, Normal Bowel Sounds, Soft Musculoskeletal: Yes: WNL Extremities: Yes: WNL Edema: No Neurological: Yes: WNL, Alert, Oriented ...Motor Strength: WNL Labs: CBC, BMP 09/16/18 08:05 09/16/18 08:05 Problem List - Problems (1) Pyelonephritis Assessment/Plan: Cont IV Ceftriaxone Follow urine cultures Pt has failed multiple courses of antibxs(macrobid/cipro) Check ct scan abd/pelvis Code(s): N12 - TUBULO-INTERSTITIAL NEPHRITIS, NOT SPCF ACUTE OR CHRONIC (2) Asthma Assessment/Plan: Cont duoneb Code(s): J45.909 - UNSPECIFIED ASTHMA, UNCOMPLICATED
[2018-09-17] MEDS ORDERED: cefTRIAXone SODIUM 1 GM VIAL ONE (09:18)
[2018-09-17] MEDS ORDERED: DEXTROSE 5%-WATER - 50 ML IVPB ONE (09:18)
[2018-09-17] MEDS: CEFTRIAXONE 1 GM in DEXTROSE 5%-WATER - 50 ML IVPB SCH (09:23)
[2018-09-17] MEDS: PANTOPRAZOLE 40 MG TABLET (FP) PO SCH (09:23)
[2018-09-17] MEDS: DEXTROSE 5%-0.45% SALINE 1,000 ML IV SCH ×2 (09:24→23:45)
[2018-09-17] MEDS: HEPARIN NA (PORCINE) 5,000 UNITS/ML 1ML VIAL SQ SCH ×2 (09:24→22:17)
--- NOTE | 2018-09-17 12:45 | PN ---
Progress Note, Physician History of Present Illness: patient feeling a little better flank pain less having her period no other issues - Current Medication List Current Medications: Active Medications Acetaminophen (Tylenol -) 650 mg PO Q4H PRN PRN Reason: PAIN OR FEVER Last Admin: 09/16/18 16:26 Dose: 650 mg Albuterol/Ipratropium (Duoneb -) 1 amp NEB Q6H PRN PRN Reason: SHORTNESS OF BREATH Last Admin: 09/17/18 11:25 Dose: 1 amp Heparin Sodium (Porcine) (Heparin -) 5,000 unit SQ BID [facility] Last Admin: 09/17/18 09:24 Dose: Not Given Dextrose/Sodium Chloride (D5-1/2ns -) 1,000 mls @ 75 mls/hr IV ASDIR [facility] Last Admin: 09/17/18 09:24 Dose: 75 mls/hr Ceftriaxone Sodium 1 gm/ (Dextrose) 50 mls @ 100 mls/hr IVPB DAILY [facility]; Protocol Last Admin: 09/17/18 09:23 Dose: 100 mls/hr Pantoprazole Sodium (Protonix -) 40 mg PO DAILY [facility] Last Admin: 09/17/18 09:23 Dose: 40 mg - Objective Vital Signs: Vital Signs Temperature 97.9 F 09/17/18 05:00 Pulse Rate 59 L 09/17/18 05:00 Respiratory Rate 18 09/16/18 21:00 Blood Pressure 121/62 09/17/18 05:00 O2 Sat by Pulse Oximetry (%) 95 09/17/18 11:39 Constitutional: Yes: No Distress, Calm, Obese Cardiovascular: Yes: Regular Rate and Rhythm Respiratory: Yes: Regular, CTA Bilaterally Gastrointestinal: Yes: Normal Bowel Sounds, Soft Musculoskeletal: Yes: WNL Extremities: Yes: WNL Neurological: Yes: Alert, Oriented Psychiatric: Yes: Alert, Oriented Labs: CBC, BMP 09/16/18 08:05 09/16/18 08:05 Assessment/Plan Problem List - Problems (1) Pyelonephritis Code(s): N12 - TUBULO-INTERSTITIAL NEPHRITIS, NOT SPCF ACUTE OR CHRONIC (2) Asthma Code(s): J45.909 - UNSPECIFIED ASTHMA, UNCOMPLICATED plan continue iv abx await for ct scan rest continue current mgmt as per primary team
--- NOTE | 2018-09-17 17:50 | PN ---
Progress Note, Physician History of Present Illness: Pt is feeling better - Current Medication List Current Medications: Active Medications Acetaminophen (Tylenol -) 650 mg PO Q4H PRN PRN Reason: PAIN OR FEVER Last Admin: 09/16/18 16:26 Dose: 650 mg Albuterol/Ipratropium (Duoneb -) 1 amp NEB Q6H PRN PRN Reason: SHORTNESS OF BREATH Last Admin: 09/17/18 11:25 Dose: 1 amp Heparin Sodium (Porcine) (Heparin -) 5,000 unit SQ BID [facility] Last Admin: 09/17/18 09:24 Dose: Not Given Dextrose/Sodium Chloride (D5-1/2ns -) 1,000 mls @ 75 mls/hr IV ASDIR [facility] Last Admin: 09/17/18 09:24 Dose: 75 mls/hr Ceftriaxone Sodium 1 gm/ (Dextrose) 50 mls @ 100 mls/hr IVPB DAILY [facility]; Protocol Last Admin: 09/17/18 09:23 Dose: 100 mls/hr Pantoprazole Sodium (Protonix -) 40 mg PO DAILY [facility] Last Admin: 09/17/18 09:23 Dose: 40 mg - Objective Vital Signs: Vital Signs Temperature 98.2 F 09/17/18 14:52 Pulse Rate 79 09/17/18 14:52 Respiratory Rate 18 09/17/18 14:52 Blood Pressure 128/64 09/17/18 14:52 O2 Sat by Pulse Oximetry (%) 95 09/17/18 11:39 Constitutional: Yes: Well Nourished Neck: Yes: WNL, Supple Cardiovascular: Yes: WNL, Regular Rate and Rhythm Respiratory: Yes: WNL, Regular, CTA Bilaterally Gastrointestinal: Yes: WNL, Normal Bowel Sounds, Soft, Abdomen, Obese Edema: No Labs: CBC, BMP 09/16/18 08:05 09/16/18 08:05 Problem List - Problems (1) Pyelonephritis Assessment/Plan: Cont IV Ceftriaxone Urine culture is negative Will dc IV ceftriaxone in am Pt has failed multiple courses of antibxs(macrobid/cipro) Check ct scan abd/pelvis Probable dc planning for am Code(s): N12 - TUBULO-INTERSTITIAL NEPHRITIS, NOT SPCF ACUTE OR CHRONIC (2) Asthma Assessment/Plan: Cont duoneb Code(s): J45.909 - UNSPECIFIED ASTHMA, UNCOMPLICATED
[2018-09-17] MEDS: ACETAMINOPHEN 325 MG TABLET (FP) PO PRN (22:19)
[2018-09-17] MEDS ORDERED: diphenhydrAMINE HCL 25 MG CAPSULE (FP) PO ONE (23:45)
[2018-09-18] MEDS: HEPARIN NA (PORCINE) 5,000 UNITS/ML 1ML VIAL SQ SCH (09:47)
[2018-09-18] MEDS: PANTOPRAZOLE 40 MG TABLET (FP) PO SCH (09:56)
[2018-09-18] MEDS: DEXTROSE 5%-0.45% SALINE 1,000 ML IV SCH (09:57)
[2018-09-18 10:43] VITALS: BP 126/84; PULSE 88; TEMP 98.3
[2018-09-18] MEDS: ACETAMINOPHEN 325 MG TABLET (FP) PO PRN (11:07)
--- NOTE | 2018-09-18 12:03 | PN ---
Progress Note, Physician History of Present Illness: stable feeling much better ct scan result noted - Current Medication List Current Medications: Active Medications Acetaminophen (Tylenol -) 650 mg PO Q4H PRN PRN Reason: PAIN OR FEVER Last Admin: 09/18/18 11:07 Dose: 650 mg Albuterol/Ipratropium (Duoneb -) 1 amp NEB Q6H PRN PRN Reason: SHORTNESS OF BREATH Last Admin: 09/17/18 11:25 Dose: 1 amp Heparin Sodium (Porcine) (Heparin -) 5,000 unit SQ BID [facility] Last Admin: 09/18/18 09:47 Dose: Not Given Dextrose/Sodium Chloride (D5-1/2ns -) 1,000 mls @ 75 mls/hr IV ASDIR [facility] Last Admin: 09/18/18 09:57 Dose: 75 mls/hr Pantoprazole Sodium (Protonix -) 40 mg PO DAILY [facility] Last Admin: 09/18/18 09:56 Dose: 40 mg - Objective Vital Signs: Vital Signs Temperature 98.3 F 09/18/18 10:41 Pulse Rate 88 09/18/18 10:41 Respiratory Rate 16 09/18/18 10:41 Blood Pressure 126/84 09/18/18 10:41 O2 Sat by Pulse Oximetry (%) 96 09/18/18 11:21 Constitutional: Yes: No Distress, Calm, Obese Cardiovascular: Yes: Regular Rate and Rhythm Respiratory: Yes: Regular, CTA Bilaterally Gastrointestinal: Yes: Normal Bowel Sounds, Soft Musculoskeletal: Yes: WNL Extremities: Yes: WNL Neurological: Yes: Alert, Oriented Psychiatric: Yes: Alert, Oriented Labs: CBC, BMP 09/16/18 08:05 09/16/18 08:05 Assessment/Plan Problem List - Problems (1) Pyelonephritis Code(s): N12 - TUBULO-INTERSTITIAL NEPHRITIS, NOT SPCF ACUTE OR CHRONIC (2) Asthma Code(s): J45.909 - UNSPECIFIED ASTHMA, UNCOMPLICATED plan stop abx monitor off of abx patient doing well rest as per the team
== END 2018-09-18 17:47 | disposition home or self-care (01) | DRG 463 ==
LOC: JER 18:04 → JERBED 21:02 → J6S 09-16 01:56 → OBSVTOIN 09-16 06:20
PROVIDERS: ADMIT Internal Medicine; ATTEND Internal Medicine
DX: N12 Tubulo-interstitial nephritis, not specified as acute or chronic (principal); J45.909 Unspecified asthma, uncomplicated; I28.8 Other diseases of pulmonary vessels
CPT/HCPCS: 36415; 74176-TC; 80053; 81003; 81015; 83605; 84703; 85025; 87040; 87086; 93005; 93010; 94640; 99284-25; G0378; J1644; J7030

== ENCOUNTER 2019-04-24 19:27 | Emergency (ER) | payer OTHER | END 2019-04-24 21:07 | disposition home or self-care (01) | LOC: FER 19:27 ==

== ENCOUNTER 2019-08-07 14:25 | Emergency (ER) | payer OTHER ==
--- NOTE | 2019-08-07 14:31 | PDOC ---
Rapid Medical Evaluation Time Seen by Provider: 08/07/19 14:28 Medical Evaluation: Allergies Allergy/AdvReac Type Severity Reaction Status Date / Time meperidine HCl [From Demerol] Allergy Intermediate Hives Verified 09/15/18 18:15 08/07/19 14:28 HPI: R ear pain and neck pain hx of mastoiditis PE: ambulates with cane no gross deficits ORDERS: U preg Discharge Disposition - Diagnosis Ear pain, right - Referrals - Patient Instructions - Post Discharge Activity
[2019-08-07 14:33] VITALS: BP 154/77; PULSE 74; TEMP 98.2; BMI 31.7
[2019-08-07] MEDS ORDERED: ACETAMINOPHEN 1000 MG/100 ML VIAL (NON FORMULARY) IVPB ONE (16:06)
[2019-08-07] MEDS ORDERED: SODIUM CHLORIDE 1,000 ML IV STA (16:06)
--- NOTE | 2019-08-07 16:06 | PDOC ---
History of Present Illness - General Chief Complaint: Ear Problem Stated Complaint: LT EAR PAIN/ LOWER BACK PAIN Time Seen by Provider: 08/07/19 14:28 History Source: Patient Exam Limitations: No Limitations Past History - Travel Traveled outside of the country in the last 30 days: No Close contact w/someone who was outside of country & ill: No - Past Medical History Allergies/Adverse Reactions: Allergies Allergy/AdvReac Type Severity Reaction Status Date / Time meperidine HCl [From Demerol] Allergy Intermediate Hives Verified 09/15/18 18:15 Home Medications: Ambulatory Orders Albuterol Sulfate [Proventil HFA Inhaler -] 1 - 2 inh PO PRN PRN 08/30/17 Amox-Tr/K Cl [Augmentin - 875Mg Tablet] 1 tab PO BID #20 tablet 08/07/19 Anemia: No Asthma: Yes Cancer: No Cardiac Disorders: Yes (pulmonary stenosis) CVA: No COPD: No CHF: No Dementia: No Diabetes: No GI Disorders: No Disorders: Yes (pyelonephritis) HTN: No Hypercholesterolemia: No Liver Disease: No Seizures: No Thyroid Disease: No - Reproductive History (#): 3 Para: 2 - Psycho Social/Smoking Cessation Hx Smoking Status: No Smoking History: Never smoked Have you smoked in the past 12 months: No Number of Cigarettes Smoked Daily: 0 Information on smoking cessation initiated: No Hx Alcohol Use: No Drug/Substance Use Hx: No Substance Use Type: None Hx Substance Use Treatment: No Review of Systems - Review of Systems Able to Perform ROS?: Yes Comments:: 08/07/19 17:09 CONSTITUTIONAL: Absent: fever, chills, diaphoresis, generalized weakness, malaise, loss of appetite HEENT: Present: R ear pain Absent: rhinorrhea, nasal congestion, throat pain, throat swelling, difficulty swallowing, mouth swelling, eye pain, visual Changes CARDIOVASCULAR: Absent: chest pain, loss of consciousness, palpitations, irregular heart rate, peripheral edema RESPIRATORY: Absent: cough, shortness of breath, dyspnea with exertion, orthopnea, wheezing, stridor, hemoptysis GASTROINTESTINAL: Absent: abdominal pain, abdominal distension, nausea, vomiting, diarrhea, constipation, melena, hematochezia GENITOURINARY: Absent: dysuria, frequency, urgency, hesitancy, hematuria, flank pain, genital pain MUSCULOSKELETAL: Absent: myalgia, arthralgia, joint swelling SKIN: Absent: rash, itching, pallor HEMATOLOGIC/IMMUNOLOGIC: Absent: easy bleeding, easy bruising, lymphadenopathy, frequent infections ENDOCRINE: Absent: unexplained weight gain, unexplained weight loss, heat intolerance, cold intolerance NEUROLOGIC: Present: headache and dizziness Absent: focal weakness or paresthesias, unsteady gait, seizure, mental status changes, bladder or bowel incontinence PSYCHIATRIC: Absent: anxiety, depression, suicidal or homicidal ideation, hallucinations. Is the patient limited Italian proficient: No *Physical Exam - Vital Signs Last Vital Signs Temp Pulse Resp BP Pulse Ox 98.2 F 74 18 154/77 100 08/07/19 14:31 08/07/19 14:31 08/07/19 14:31 08/07/19 14:31 08/07/19 14:31 - Physical Exam Comments: 08/07/19 17:11 GENERAL: Well developed, well nourished. Awake and alert. No acute distress. HEENT: Normocephalic, atraumatic. PERRLA, EOMI. No conjunctival pallor. Sclera are non- icteric. Moist mucous membranes. Oropharynx is clear. R ear drum still perforated, no obvious infection at this time. NECK: Supple. Full ROM. No JVD. Carotid pulses 2+ and symmetric, without bruits. No thyromegaly. No lymphadenopathy. CARDIOVASCULAR: Regular rate and rhythm. No murmurs, rubs, or gallops. Distal pulses are 2+ and symmetric. PULMONARY: No evidence of respiratory distress. Lungs clear to auscultation bilaterally. No wheezing, rales or rhonchi. ABDOMINAL: Soft. Non-tender. Non-distended. No rebound or guarding. No organomegaly. Normoactive bowel sounds. MUSCULOSKELETAL Normal range of motion at all joints. No bony deformities or tenderness. No CVA tenderness. EXTREMITIES: No cyanosis. No clubbing. No edema. No calf tenderness. SKIN: Warm and dry. Normal capillary refill. No rashes. No jaundice. NEUROLOGICAL: Alert, awake, appropriate. Cranial nerves 2-12 intact. No deficits to light touch and temperature in face, upper extremities and lower extremities. No motor deficits in the in face, upper extremities and lower extremities. Normoreflexic in the upper and lower extremities. Normal speech. Toes are down- going bilaterally. Gait is normal without ataxia. PSYCHIATRIC: Cooperative. Good eye contact. Appropriate mood and affect. ED Treatment Course - LABORATORY CBC & Chemistry Diagram: 08/07/19 16:30 08/07/19 16:30 Medical Decision Making - Medical Decision Making 08/07/19 17:12 The patient is a 29-year-old female with past medical history of mastoiditis, presents to the ER today for right ear pain. She states that she was originally diagnosed with mastoiditis back in May after having a perforated eardrum. She states that her right ear pain has gotten worse today so she came for evaluation. She is worried that she has worsening mastoiditis. she also admits to headache and dizziness. Denies fevers, chills, worsening hearing loss , nausea, vomiting and diarrhea. A/P: Right ear pain headache On exam the right ear drum still appears perforated. No obvious infection Given history of mastoiditis with reported worsening headache, will transfer to the main ED for facial bones CT and labs. Signout given to SUPPLY CHAIN DEVELOPMENT MANAGER Janak. Discharge - Discharge Information Problems reviewed: Yes Clinical Impression/Diagnosis: Chronic otitis media of right ear with perforated tympanic membrane Condition: Stable Disposition: HOME - Additional Discharge Information Prescriptions: Amox-Tr/K Cl [Augmentin - 875Mg Tablet] 1 tab PO BID #20 tablet - Follow up/Referral Referrals: Boby Adames MD [Primary Care Provider] - Yaya Amato MD [Staff Physician] - - Patient Discharge Instructions Additional Instructions: Take Augmentin 875 mg twice a day as prescribed. Take Tylenol and Motrin as needed for fever and pain. Follow manufacturers instructions for appropriate dosage. Make an appointment with the ENT specialist for reevaluation symptoms do not improve in the next 4 days. Return to emergency department for worsening pain, fevers even while giving medication, drainage from the ears, or any other concerns. Thank you very much for choosing us to provide your emergent healthcare needs. - Post Discharge Activity Work/Back to School Note: Back to Work
--- NOTE | 2019-08-07 16:45 | PDOC ---
*Physical Exam - Vital Signs Last Vital Signs Temp Pulse Resp BP Pulse Ox 98.2 F 74 18 154/77 100 08/07/19 14:31 08/07/19 14:31 08/07/19 14:31 08/07/19 14:31 08/07/19 14:31 - Physical Exam General Appearance: Yes: Appropriately Dressed. No: Apparent Distress HEENT: positive: Other (Right TM perforated with mild mastoid tenderness. No erythema present to mastoid. No tragal tenderness b/l. Left ear exam is unremarkable.) Neck: positive: Trachea midline Respiratory/Chest: positive: Lungs Clear, Normal Breath Sounds. negative: Respiratory Distress, Accessory Muscle Use ED Treatment Course - LABORATORY CBC & Chemistry Diagram: 08/07/19 16:30 08/07/19 16:30 ED Progress Note - Progress Note Progress Note: Patient transferred from fast track after being evaluated by YESSENIA juarez. Briefly this a 29-year-old woman with history of mastoiditis and TM rupture presents emergency Department with right ear pain headache and dizziness. Patient has received 1 g of Tylenol IV is currently getting normal saline 1 L bolus. Patient is pending laboratory testing including urine , CT of the facial bones at this time. Medical Decision Making - Medical Decision Making 08/07/19 20:28 CT scan is read by Dr. Lopez: A small amount of right mastoid effusion is present that is significantly improved from MRI performed 05/22/19. The left mastoid air cells are as well as the right and left middle ear are well aerated. Borderline and slightly prominent bilateral upper and neck jugular chain lymph nodes uncertain clinical significance or etiology. Discharge home with ENT follow-up and prescription for Augmentin 875 mg twice a day for 10 days I discussed the physical exam findings, ancillary test results and final diagnoses with the patient. I answered all of the patient's questions. The patient was satisfied with the care received and felt comfortable with the discharge plan and treatment plan. The patient will call their primary care physician within 24 hours to arrange follow-up and will return to the Emergency Department with any new, persistent or worsening symptoms. Portions of this note have been documented using voice recognition software. As a result, errors may occur in the federal appellate clerk process. Effort has been made to correct all grammatical and federal appellate clerk error, but some may have been missed. Discharge - Discharge Information Problems reviewed: Yes Clinical Impression/Diagnosis: Chronic otitis media of right ear with perforated tympanic membrane Condition: Stable Disposition: HOME - Admission No - Additional Discharge Information Prescriptions: Amox-Tr/K Cl [Augmentin - 875Mg Tablet] 1 tab PO BID #20 tablet - Follow up/Referral Referrals: Boby Adames MD [Primary Care Provider] - Yaya Amato MD [Staff Physician] - - Patient Discharge Instructions Additional Instructions: Take Augmentin 875 mg twice a day as prescribed. Take Tylenol and Motrin as needed for fever and pain. Follow manufacturers instructions for appropriate dosage. Make an appointment with the ENT specialist for reevaluation symptoms do not improve in the next 4 days. Return to emergency department for worsening pain, fevers even while giving medication, drainage from the ears, or any other concerns. Thank you very much for choosing us to provide your emergent healthcare needs. - Post Discharge Activity Work/Back to School Note: Back to Work
[2019-08-07 16:52] LABS: BASO % 0.4 % (0-2.0); EOS % 1.1 % (0-4.5); HEMATOCRIT 41.9 % (32.4-45.2); HEMOGLOBIN 13.5 GM/dL (10.7-15.3); LYMPH % 36.1 % (8-40); MCH 28.7 pg (25.7-33.7); MCHC 32.2 g/dl (32.0-36.0); MEAN CELL VOLUME 89.1 fl (80-96); MEAN PLT VOLUME 8.6 fl (7.5-11.1); MONO % 5.8 % (3.8-10.2); NEUT % 56.6 % (42.8-82.8); PLATELET COUNT 275 K/MM3 (134-434); RDW 13.8 % (11.6-15.6); WHITE BLOOD COUNT 5.7 K/mm3 (4.0-10.0)
[2019-08-07 17:00] LABS: INR 0.97 (0.83-1.09); PROTHROMBIN TIME (PATIENT) 11.5 SEC (9.7-13.0)
--- NOTE | 2019-08-07 17:07 | PDOC ---
*Physical Exam - Vital Signs Last Vital Signs Temp Pulse Resp BP Pulse Ox 98.2 F 74 18 154/77 100 08/07/19 14:31 08/07/19 14:31 08/07/19 14:31 08/07/19 14:31 08/07/19 14:31 - Physical Exam Comments: 08/07/19 17:06 The patient was examined by [TAIL WORKER Janak] under my direct supervision. I personally evaluated the patient. I concur with the above findings and the plan of care. ED Treatment Course - LABORATORY CBC & Chemistry Diagram: 08/07/19 16:30 08/07/19 16:30 - ADDITIONAL ORDERS Additional order review: Laboratory Results 08/07/19 16:30 PT with INR 11.50 INR 0.97 08/07/19 16:30 RBC 4.70 MCV 89.1 MCHC 32.2 RDW 13.8 MPV 8.6 Neutrophils % 56.6 D Lymphocytes % 36.1 D Monocytes % 5.8 Eosinophils % 1.1 Basophils % 0.4 Discharge - Discharge Information Problems reviewed: Yes Clinical Impression/Diagnosis: Chronic otitis media of right ear with perforated tympanic membrane Condition: Stable Disposition: HOME - Additional Discharge Information Prescriptions: Amox-Tr/K Cl [Augmentin - 875Mg Tablet] 1 tab PO BID #20 tablet - Follow up/Referral Referrals: Boby Adames MD [Primary Care Provider] - Yaya Amato MD [Staff Physician] - - Patient Discharge Instructions Additional Instructions: Take Augmentin 875 mg twice a day as prescribed. Take Tylenol and Motrin as needed for fever and pain. Follow manufacturers instructions for appropriate dosage. Make an appointment with the ENT specialist for reevaluation symptoms do not improve in the next 4 days. Return to emergency department for worsening pain, fevers even while giving medication, drainage from the ears, or any other concerns. Thank you very much for choosing us to provide your emergent healthcare needs. - Post Discharge Activity Work/Back to School Note: Back to Work
[2019-08-07] MEDS ORDERED: ACETAMINOPHEN INJECTION 100 ML IVPB ONE (17:32)
[2019-08-07 17:35] LABS: ALBUMIN 3.7 g/dl (3.4-5.0); BILIRUBIN,TOTAL 0.4 mg/dL (0.2-1); BLOOD UREA NITROGEN 11.1 mg/dL (7-18); CALCIUM 8.8 mg/dL (8.5-10.1); CREATININE 0.6 mg/dL (0.55-1.3); POTASSIUM 4.4 mmol/L (3.5-5.1); TOT PROT 7.4 g/dl (6.4-8.2)
== END 2019-08-07 20:44 | disposition home or self-care (01) ==
LOC: JER 14:25 → JERFT 14:25 → JER 20:44
PROC: 3E033NZ Introduction of Analgesics, Hypnotics, Sedatives into Peripheral Vein, Percutaneous Approach (ICD-10-PCS; principal; 2019-08-07)
PROC: 3E0337Z Introduction of Electrolytic and Water Balance Substance into Peripheral Vein, Percutaneous Approach (ICD-10-PCS; 2019-08-07)
DX: H66.91 Otitis media, unspecified, right ear (principal); H72.91 Unspecified perforation of tympanic membrane, right ear; Z88.8 Allergy status to other drugs, medicaments and biological substances
CPT/HCPCS: 36415; 70487-TC; 80053; 84703; 85025; 85610; 99283-25; J0131; J7030

== ENCOUNTER 2019-09-25 18:03 | Emergency (ER) | payer OTHER ==
[2019-09-25 18:11] VITALS: BP 138/97; PULSE 98; TEMP 98.1; BMI 31.4
--- NOTE | 2019-09-25 18:12 | PDOC ---
Rapid Medical Evaluation Chief Complaint: Ear Problem Time Seen by Provider: 09/25/19 18:08 Medical Evaluation: Allergies Allergy/AdvReac Type Severity Reaction Status Date / Time meperidine HCl [From Demerol] Allergy Intermediate Hives Verified 09/15/18 18:15 09/25/19 18:10 I have performed a brief in-person evaluation of this patient. The patient presents with a chief complaint of: rt headache, sore throat, chills , hoarseness, hx mastoiditis , went to [facility] ( last visit july) Pertinent physical exam findings: hoarse, vss, no thyroidmegaly I have ordered the following: none The patient will proceed to the ED for further evaluation. Discharge Disposition - Diagnosis Sore throat - Referrals - Patient Instructions - Post Discharge Activity
--- NOTE | 2019-09-25 18:44 | PDOC ---
History of Present Illness - General Chief Complaint: Ear Problem Stated Complaint: EAR/ACHE/FEVER Time Seen by Provider: 09/25/19 18:08 - History of Present Illness Initial Comments: 09/25/19 18:42 29-year-old female with a history of mastoiditis presents for evaluation of right ear pain. She states her ear pain started in May she has been on multiple antibiotics since that time including steroids eardrops Augmentin and vancomycin. She has decreased hearing she has followed up with an ear nose and throat doctor without relief of symptoms. She is also taking a decongestant without relief. She has had no change in her symptoms since the onset in May. 09/25/19 18:43 She also complains of hoarse voice over the last 2 or 3 days no systemic symptoms Past History - Past Medical History Allergies/Adverse Reactions: Allergies Allergy/AdvReac Type Severity Reaction Status Date / Time meperidine HCl [From Demerol] Allergy Intermediate Hives Verified 09/15/18 18:15 Home Medications: Ambulatory Orders Albuterol Sulfate [Proventil HFA Inhaler -] 1 - 2 inh PO PRN PRN 08/30/17 Amox-Tr/K Cl [Augmentin - 875Mg Tablet] 1 tab PO BID #20 tablet 08/07/19 Anemia: No Asthma: Yes Cancer: No Cardiac Disorders: Yes (pulmonary stenosis) CVA: No COPD: No CHF: No Dementia: No Diabetes: No GI Disorders: No Disorders: Yes (pyelonephritis) HTN: No Hypercholesterolemia: No Liver Disease: No Seizures: No Thyroid Disease: No Other medical history: Mastoiditis - Reproductive History (#): 3 Para: 2 - Psycho Social/Smoking Cessation Hx Smoking Status: No Smoking History: Never smoked Have you smoked in the past 12 months: No Number of Cigarettes Smoked Daily: 0 Information on smoking cessation initiated: No Hx Alcohol Use: No Drug/Substance Use Hx: No Substance Use Type: None Hx Substance Use Treatment: No Review of Systems - Review of Systems HEENTM: Yes: Ear Pain *Physical Exam - Vital Signs Last Vital Signs Temp Pulse Resp BP Pulse Ox 98.1 F 98 H 19 138/97 100 09/25/19 18:08 09/25/19 18:08 09/25/19 18:08 09/25/19 18:08 09/25/19 18:08 - Physical Exam Comments: 09/25/19 18:43 GENERAL: The patient is awake, alert, and fully oriented, in no acute distress. HEAD: Normal with no signs of trauma. EYES: sclera anicteric, conjunctiva clear. ENT: Ears normal NECK: Normal range of motion LUNGS: Breath sounds equal, clear to auscultation bilaterally. No wheezes, and no crackles. HEART: S1 and S2 without murmur, rub or gallop. ABDOMEN: Soft, nontender, normoactive bowel sounds. No guarding, no rebound. No masses. EXTREMITIES: Normal range of motion, no edema. No clubbing or cyanosis. No cords, erythema, or tenderness. NEUROLOGICAL: Cranial nerves II through XII grossly intact. Normal speech, normal gait. PSYCH: Normal mood, normal affect. SKIN: Warm, Dry, normal turgor, no rashes or lesions noted. Medical Decision Making - Medical Decision Making 09/25/19 18:43 This is a viral laryngitis. Also chronic right ear pain with a history of mastoiditis without change in symptoms I will hold off on antibiotics and have her follow-up with ENT Discharge - Discharge Information Problems reviewed: Yes Clinical Impression/Diagnosis: Sore throat, Laryngitis Condition: Stable Disposition: HOME - Admission No - Follow up/Referral Referrals: Boby Adames MD [Primary Care Provider] - Yaya Amato MD [Staff Physician] - - Patient Discharge Instructions Patient Printed Discharge Instructions: Laryngitis, DI for Laryngitis Additional Instructions: You may take Tylenol and Motrin as directed for any discomfort. Return to the emergency room for any worsening symptoms and without fail please follow-up with ear nose and throat doctor in 1 to 2 days for further evaluation and treatment options. - Post Discharge Activity
== END 2019-09-25 18:51 | disposition home or self-care (01) ==
LOC: JERFT 18:03
DX: J04.0 Acute laryngitis (principal); J02.9 Acute pharyngitis, unspecified; Z88.8 Allergy status to other drugs, medicaments and biological substances; J45.909 Unspecified asthma, uncomplicated; Q25.6 Stenosis of pulmonary artery; N12 Tubulo-interstitial nephritis, not specified as acute or chronic
CPT/HCPCS: 99281-25

== ENCOUNTER 2020-01-26 21:13 | Emergency (ER) | payer OTHER ==
[2020-01-26 21:24] VITALS: BP 126/82; PULSE 86; TEMP 98.1; BMI 31.7
[2020-01-26 22:05] LABS: EPI CELLS 22 /HPF (0-5/HPF); HYALINE CASTS 2 /lpf (0-8); URINE APPEARANCE CLEAR; URINE BACTERIA 921 /hpf (NEGATIVE); URINE BILIRUBIN NEGATIVE (NEGATIVE); URINE COLOR YELLOW; URINE GLUCOSE (UA) NEGATIVE (NEGATIVE); URINE KETONE TRACE (NEGATIVE); URINE LEUK ESTERASE 1+ (NEGATIVE); URINE NITRITE NEGATIVE (NEGATIVE); URINE PROTEIN NEGATIVE (NEGATIVE); URINE RBC 6 /hpf (0-4); URINE WBC 62 /hpf (0-5)
[2020-01-26 22:14] LABS: HCG,QUALITATIVE URINE Negative
[2020-01-26 22:59] LABS: BASO % 0.4 % (0-2.0); EOS % 1.6 % (0-4.5); HEMATOCRIT 38.2 % (32.4-45.2); HEMOGLOBIN 12.6 GM/dL (10.7-15.3); LYMPH % 39.7 % (8-40); MCH 29.4 pg (25.7-33.7); MEAN CELL VOLUME 89.1 fl (80-96); MEAN PLT VOLUME 8.6 fl (7.5-11.1); NEUT % 49.3 % (42.8-82.8); PLATELET COUNT 265 K/MM3 (134-434); RBC 4.29 M/mm3 (3.60-5.2); RDW 13.7 % (11.6-15.6); WHITE BLOOD COUNT 8.6 K/mm3 (4.0-10.0)
--- NOTE | 2020-01-26 23:05 | PDOC ---
History of Present Illness - General Chief Complaint: Urinary Problem Stated Complaint: URINE PROBLEM ( SENT BY PCP) Time Seen by Provider: 01/26/20 22:25 History Source: Patient Exam Limitations: No Limitations - History of Present Illness Travel History: No Initial Comments: 01/26/20 22:55 HISTORY OF PRESENT ILLNESS: 29-year-old woman past medical history of pulmonary stenosis presents emergency department for evaluation of dysuria and bilateral flank pain for 1 day. Patient reports history of multiple episodes of pyelonephritis requiring hospital admission. Patient initially presented to an urgent care center was briefly evaluated and recommended to come to the emergency department at that time. Patient went home and had a 3-hour gap betw een leaving the urgent care center and presenting to the emergency department. Patient also reports having mild sore throat. She denies any fevers, chills, cough, runny nose, shortness of breath, chest pain, hematuria, vaginal bleeding, vaginal discharge, diarrhea, rectal bleeding. No recent travel or sick contacts. PAST MEDICAL HISTORY: Denies past medical history SURGICAL HISTORY: Denies ALLERGIES: Demerol REVIEW OF SYSTEMS General/Constitutional: Denies fever or chills. Denies weakness, weight change. HEENT: See HPI Cardiovascular: Denies chest pain or shortness of breath. Respiratory: Denies cough, wheezing, or hemoptysis. Gastrointestinal: Denies nausea, vomiting, diarrhea or constipation. Denies rectal bleeding. Genitourinary: See HPI Musculoskeletal: Denies joint or muscle swelling or pain. Denies neck or back pain. Skin and breasts: Denies rash or easy bruising. Neurologic: Denies headache, vertigo, loss of consciousness, or loss of sensation. Psychiatric: Denies depression or anxiety. Endocrine: Denies increased thirst. Denies abnormal weight change. Hematologic/Lymphatic: Denies anemia, easy bleeding, or history of blood clots. Allergic/Immunologic: Denies hives or skin allergy. Denies latex allergy. PHYSICAL EXAM General Appearance: Well-appearing, appropriately dressed. No apparent distress, no intoxication. HEENT: EOMI, PERRLA, normal ENT inspection, normal voice, TMs normal, pharynx normal. No conjunctival pallor. No photophobia, scleral icterus. Neck: Supple. Trachea midline. No tenderness, rigidity, carotid bruit, stridor, lymphadenopathy, or thyromegaly. Respiratory/Chest: Lungs CTAB. No shortness of breath, chest tenderness, respiratory distress, accessory muscle use. No crackles, rales, rhonchi, stridor, wheezing, dullness Cardiovascular: RRR. S1, S2. No JVD, murmur, bradycardia, tachycardia. Vascular Pulses: Dorsalis-Pedis (R): 2+, Dorsalis-Pedis (L): 2+ Gastrointestinal/Abdominal: Normal bowel sounds. Abdomen soft, non-distended. Suprapubic tenderness without rebound tenderness. No organomegaly, pulsatile mass, guarding, hernia, hepatomegaly, splenomegaly. Lymphatic: No adenopathy, tenderness. Musculoskeletal/Extremities: Normal inspection. FROM of all extremities, normal capillary refill. Bilateral CVA tenderness. Integumentary: Appropriate color, dry, warm. No cyanosis, erythema, jaundice or rash Past History - Past Medical History Allergies/Adverse Reactions: Allergies Allergy/AdvReac Type Severity Reaction Status Date / Time meperidine HCl [From Demerol] Allergy Intermediate Hives Verified 01/26/20 21:23 Home Medications: Ambulatory Orders Albuterol Sulfate [Proventil HFA Inhaler -] 1 - 2 inh PO PRN PRN 08/30/17 Amox-Tr/K Cl [Augmentin - 875Mg Tablet] 1 tab PO BID #20 tablet 08/07/19 Fluconazole [Diflucan -] 100 mg PO ONCE #1 tablet 09/25/19 Cephalexin Monohydrate [Keflex -] 500 mg PO Q8H #30 capsule 01/26/20 Anemia: No Asthma: Yes Cancer: No Cardiac Disorders: Yes (pulmonary stenosis) CVA: No COPD: No CHF: No Dementia: No Diabetes: No GI Disorders: No Disorders: Yes (pyelonephritis) HTN: No Hypercholesterolemia: No Liver Disease: No Seizures: No Thyroid Disease: No - Reproductive History (#): 3 Para: 2 - Psycho Social/Smoking Cessation Hx Smoking Status: No Smoking History: Never smoked Have you smoked in the past 12 months: No Number of Cigarettes Smoked Daily: 0 Hx Alcohol Use: No Drug/Substance Use Hx: No Substance Use Type: None Hx Substance Use Treatment: No *Physical Exam - Vital Signs Last Vital Signs Temp Pulse Resp BP Pulse Ox 98.1 F 86 18 126/82 99 01/26/20 21:20 01/26/20 21:20 01/26/20 21:20 01/26/20 21:20 01/26/20 21:20 ED Treatment Course - LABORATORY CBC & Chemistry Diagram: 01/26/20 22:42 01/26/20 22:42 - ADDITIONAL ORDERS Additional order review: Laboratory Results 01/26/20 21:43 Urine Color Yellow Urine Appearance Clear Urine pH 6.0 Ur Specific [place] 1.023 Urine Protein Negative Urine Glucose (UA) Negative Urine Ketones Trace H Urine Blood Negative Urine Nitrite Negative Urine Bilirubin Negative Urine Urobilinogen 1.0 Ur Leukocyte Esterase 1+ H Urine WBC (Auto) 62 Urine RBC (Auto) 6 Urine Casts (Auto) 2 U Epithel Cells (Auto) 22 Urine Bacteria (Auto) 921 Urine HCG, Qual Negative Medical Decision Making - Medical Decision Making 01/26/20 23:05 A/P: 29-year-old woman with likely urinary tract infection also with sore throat urinalysis performed at [facility] medical evaluation is consistent with urinary tract infection. As patient has history of pyelonephritis I will get basic labs to rule outs JONNA or leukocytosis. Patient is well-appearing and is not showing any systemic signs of pyelonephritis we will can likely be treated as an outpatient. Reassess 01/26/20 23:49 Laboratory Tests 01/26/20 01/26/20 01/26/20 21:43 22:42 22:42 WBC 8.6 RBC 4.29 Hgb 12.6 Hct 38.2 MCV 89.1 MCH 29.4 MCHC 33.0 RDW 13.7 Plt Count 265 MPV 8.6 Absolute Neuts (auto) 4.2 Neutrophils % 49.3 Lymphocytes % 39.7 Monocytes % 9.0 Eosinophils % 1.6 Basophils % 0.4 Nucleated RBC % 0 Sodium 143 Potassium 4.2 Chloride 110 H Carbon Dioxide 28 Anion Gap 5 L BUN 9.2 Creatinine 0.8 Est GFR (CKD-EPI)AfAm 116.28 Est GFR (CKD-EPI)NonAf 100.33 Random Glucose 98 Calcium 8.5 Urine Color Yellow Urine Appearance Clear Urine pH 6.0 Ur Specific [place] 1.023 Urine Protein Negative Urine Glucose (UA) Negative Urine Ketones Trace H Urine Blood Negative Urine Nitrite Negative Urine Bilirubin Negative Urine Urobilinogen 1.0 Ur Leukocyte Esterase 1+ H Urine WBC (Auto) 62 Urine RBC (Auto) 6 Urine Casts (Auto) 2 U Epithel Cells (Auto) 22 Urine Bacteria (Auto) 921 Urine HCG, Qual Negative No leukocytosis present. Kidney function is unremarkable. Patient is continues to have no systemic symptoms I feel it is safe to treat patient as an outpatient. Prescription for Keflex 500 mg 3 times daily has been sent to patient's preferred pharmacy. This will treat patient start infection if it is bacterial in etiology. I discussed the physical exam findings, ancillary test results and final diagnoses with the patient. I answered all of the patient's questions. The patient was satisfied with the care received and felt comfortable with the discharge plan and treatment plan. The patient will call their primary care physician within 24 hours to arrange follow-up and will return to the Emergency Department with any new, persistent or worsening symptoms. Portions of this note have been documented using voice recognition software. As a result, errors may occur in the group work program director process. Effort has been made to correct all grammatical and group work program director error, but some may have been missed which may produce sporadic inaccurate group work program director or nonsensical phrases. Discharge - Discharge Information Problems reviewed: Yes Clinical Impression/Diagnosis: Pyelonephritis Condition: Fair Disposition: HOME - Admission No - Additional Discharge Information Prescriptions: Cephalexin Monohydrate [Keflex -] 500 mg PO Q8H #30 capsule - Follow up/Referral - Patient Discharge Instructions Additional Instructions: Rest, drink lots of fluids: Teas, water, soups Avoid contact with others until fevers and symptoms resolved Lots of handwashing and good hygiene Continue [id number] medications for symptomatic relief Tylenol or Motrin for fever and pain Continue all of antibiotics until completed Followup with private physician in one week for repeat urinalysis/reevaluation Return to emergency department for worsened symptoms, fevers, dehydration - Post Discharge Activity
[2020-01-26 23:40] LABS: BLOOD UREA NITROGEN 9.2 mg/dL (7-18); CALCIUM 8.5 mg/dL (8.5-10.1); CREATININE 0.8 mg/dL (0.55-1.3); POTASSIUM 4.2 mmol/L (3.5-5.1)
== END 2020-01-26 23:43 | disposition home or self-care (01) ==
LOC: JER 21:13 → JERFT 21:13 → JER 23:43
DX: N12 Tubulo-interstitial nephritis, not specified as acute or chronic (principal); N39.0 Urinary tract infection, site not specified; Z88.5 Allergy status to narcotic agent; Z86.73 Personal history of transient ischemic attack (TIA), and cerebral infarction without residual deficits
CPT/HCPCS: 36415; 80048; 81003; 84703; 85025; 87086; 99283-25

== ENCOUNTER 2022-12-31 02:36 | Emergency (ER) | payer OTHER ==
[2022-12-31 02:52] VITALS: BP 146/97; PULSE 87; RESP 18; TEMP 98.3; BMI 36.3
[2022-12-31] MEDS ORDERED: DEXAMETHASONE SOD PHOSPHATE 10 MG/1 ML VIAL IVPUSH ONE (03:05)
[2022-12-31] MEDS ORDERED: FAMOTIDINE 20 MG/50 ML IVPB 20 MG/50 ML MG IVPB ONE ×2 (03:05→03:08)
[2022-12-31] MEDS ORDERED: DEXAMETHASONE SOD PHOSPHATE 10 MG/1 ML VIAL ONE (03:07)
[2022-12-31 03:30] LABS: BASO % 0.3 % (0-2.0); EOS % 1.4 % (0-4.5); HEMATOCRIT 37.9 % (32.4-45.2); HEMOGLOBIN 12.8 GM/dL (10.7-15.3); LYMPH % 32.4 % (8-40); MCH 29.4 pg (25.7-33.7); MCHC 33.7 g/dl (32.0-36.0); MEAN CELL VOLUME 87.2 fl (80-96); MEAN PLT VOLUME 7.6 fl (7.5-11.1); MONO % 6.6 % (3.8-10.2); NEUT % 59.3 % (42.8-82.8); PLATELET COUNT 333 10^3/uL (134-434); RBC 4.34 M/mm3 (3.60-5.2); RDW 13.5 % (11.6-15.6); WHITE BLOOD COUNT 11.5 K/mm3 (4.0-10.0)
[2022-12-31 03:49] LABS: CHLORIDE 109 mmol/L (98-107); SODIUM 140 mmol/L (136-145)
[2022-12-31 03:51] LABS: ALBUMIN 3.5 g/dl (3.4-5.0); ANION GAP 6 MMOL/L (8-16); CALCIUM 9.5 mg/dL (8.5-10.1); CO2 25 mmol/L (21-32); GLUCOSE,RANDOM 101 mg/dL (74-106)
[2022-12-31 03:53] LABS: BLOOD UREA NITROGEN 10.1 mg/dL (7-18)
[2022-12-31 03:54] LABS: CREATININE 0.6 mg/dL (0.55-1.3)
[2022-12-31 03:55] LABS: SGOT/AST 12 U/L (15-37); SGPT/ALT 23 U/L (13-61)
[2022-12-31 03:56] LABS: BILIRUBIN,TOTAL 0.2 mg/dL (0.2-1); TOT PROT 7.1 g/dl (6.4-8.2)
[2022-12-31 03:57] LABS: ALK PHOS 65 U/L (45-117)
== END 2022-12-31 04:36 | disposition home or self-care (01) ==
LOC: JER 02:36
PROC: 3E033GC Introduction of Other Therapeutic Substance into Peripheral Vein, Percutaneous Approach (ICD-10-PCS; principal; 2022-12-31)
DX: R07.9 Chest pain, unspecified (principal); R21 Rash and other nonspecific skin eruption
CPT/HCPCS: 36415; 71045-TC-FY; 80053; 84484; 85025; 93005; 93010; 99285-25; J1100

== ENCOUNTER 2024-03-02 23:27 | Emergency (ER) | payer OTHER ==
[2024-03-02 23:36] VITALS: BP 143/76; PULSE 84; RESP 18; TEMP 98.1; BMI 34.9
== END 2024-03-03 01:25 | disposition home or self-care (01) ==
LOC: JER 23:27
DX: R07.89 Other chest pain (principal)
CPT/HCPCS: 36415; 71046-TC-FY; 84484; 93005; 93010; 99285-25

== ENCOUNTER 2024-09-06 16:03 | Emergency (ER) | payer OTHER ==
[2024-09-06 16:10] VITALS: BP 143/87; PULSE 87; RESP 18; TEMP 98.2; BMI 32.5
[2024-09-06] MEDS ORDERED: ACETAMINOPHEN 500 MG TABLET (FP) ONE (17:17)
[2024-09-06] MEDS: ACETAMINOPHEN 1000 MG/100 ML BAG IVPB ONE (17:28)
[2024-09-06] MEDS: ACETAMINOPHEN 500 MG TABLET (FP) PO ONE (17:31)
== END 2024-09-06 20:03 | disposition home or self-care (01) ==
LOC: JER 16:03
DX: M25.561 Pain in right knee (principal); M71.21 Synovial cyst of popliteal space [Baker], right knee
CPT/HCPCS: 84703; 93005; 93010; 93971-TC; 99285-25